=== PATIENT | female | born 1985 | race Caucasian/White ===

== ENCOUNTER → 2024-11-03 | Outpatient (CLI) | payer OTHER ==
[~2024-11-03] MED LIST: IBUP80TA PO; LEVO150T6 PO; LEVO88TA4 PO; MAPA500T17 PO; PRENTAB74 PO
== END ==
LOC: M RAD 12:23
PROVIDERS: ATTEND Nurse Practitioner Family
DX: E06.3 Autoimmune thyroiditis (principal)